=== PATIENT | female | born 1975 | race Caucasian/White ===

== ENCOUNTER 2017-07-25 17:49 | Emergency (ER) | payer SELFPAY ==
[2017-07-25 17:58] VITALS: BP 121/67; BMI 33.1
[2017-07-25] MEDS ORDERED: LEVSIN/MAALOX/LIDOC VISC PO ONE (20:57)
[2017-07-25] MEDS ORDERED: TORADOL 60 MG VIAL IM ONE (20:57)
[2017-07-25] MEDS ORDERED: TORADOL 60 MG VIAL ONE (21:00)
[2017-07-25] MEDS ORDERED: LEVSIN/MAALOX/LIDOC VISC ONE (21:00)
--- NOTE | 2017-07-25 21:02 | DR.GENAD ---
HPI - PCP Primary Care Physician: EDY DRISCOLL - Complaint/Symptoms Chief Complaint Doctors Comments: Patient is comlaining of epigastric pain for the past three days getting worst tonight. States she has been having pain her abdomen since Jun 2017. States the pain is 10 of 10 and is worst when she stands or tries to walk. States the pain is better when she bend over in the positon. States they thought she had pancreatitis when she had her baby. She denies alcohol or tobacco usage. States she does not have any periods since her ablation. States the pain is mainly in the epigastric area in the middle and LUQ and does not radiate. States she was taking Omeprazole after she had her stomach surgery but she stopped recently. Chief Complaint:: ADB PAIN, GALLBLADDER? Self Treatment fo Chief Complaint: STARTED FIRST WEEK OF JUNE, BUT HAS GOTTEN WORSE IN LAST 3 DAYS - Nurses notes reviewed Nurses Notes Review: Yes - Source History Provided: Patient - Mode of Arrival Mode of Arrival: Ambulatory - Timing Onset of Chief Complaint: 07/22/17 Came on: Gradually - Duration Duration: Constant How lon Duration: Days - Location Location: epigastric and LUQ - Severity Severity: Severe - Modifying Factors Worsens:: standing or walking Improves:: position PMH - PMH Past Medical History: Yes Past Medical History: Diabetes, Headaches Past Surgical History: Yes Surgical History: Ortho Surgery, Tonsillectomy Past Surgical History Comment: BREAST REDUCTION, GSTRIC SLEEVE IN OCTOBER 2016 - Family History History of Family Medical Conditions: Yes Family Medical History: Diabetes Mellitus, Coronary Artery Disease, Heart Failure, Hypertension - Social History Does patient currently use any type of tobacco product: No Have you used tobacco products in the last 12 months: No Type of Tobacco Use: None Does any household member use tobacco: Yes Alcohol Use: None Do you use any recreational Drugs:: No Lives With: Spouse Lives Where: Home - infectious screening In the last 2 months have you had wt loss of >10#?: NO Have you had fever, night sweats or hemotysis?: No Have you traveled outside the country in the last 6 months?: No Isolation: Standard ROS - Review of Systems Constitutional: No Symptoms Reported, Loss of Appetite. negative: See HPI, Chills, Diaphoresis, Fever, Malaise, Weakness, Irritable, Fatigue, Other Eyes: No Symptoms Reported. negative: See HPI, Eye Pain, Blurred Vision, Tearing, Discharge, Photophobia, Diplopia, Other ENTM: No Symptoms Reported Respiratoy: No Symptoms Reported. negative: See HPI, Productive Cough, Non- Productive Cough, Moist Cough, Dry Cough, Hacking Cough, Barking Cough, Brassy Cough, Orthopnea, Short of Breath, Stridor, Wheezing, Hemoptysis, Other Cardiovascular: No Symptoms Reported. negative: See HPI, Chest Pain, Edema, Palpitations, Syncope, Cyanosis, Skin Mottling, Other Gastrointestinal/Abdominal: No Symptoms Reported, Abdominal Pain, Nausea. negative: See HPI, Constipation, Diarrhea, Vomiting, Food Intolerance, Other Genitourinary: No Symptoms Reported. negative: See HPI, Discharge, Dysuria, Frequency, Hematuria, Pain, Bleeding, Other Neurological: No Symptoms Reported Musculoskeletal: No Symptoms Reported Integumentary: No Symptoms Reported. negative: See HPI, Change in Color, Change in Hair/Nails, Dryness, Lesions, Lumps, Rash, Itching, Wound, Bruises, Juandice, Other Hematologic/Lymphatic: No Symptoms Reported Endocrine: No Symptoms Reported Psychiatric: No Symptoms Reported. negative: See HPI, Anxiety, Depression, Hallucinations, Excessive crying, Suicidal, Other PE - Vital Signs Vitals: Temperature 98.9 F Pulse Rate 72 Respiratory Rate 20 Blood Pressure 121/67 O2 Sat by Pulse Oximetry 100 - General Limitations: No Limitations General Appearance: Alert, In Distress (moderate) - Head Head Exam: Normal Inspection, Atraumatic, Normocephalic - Eyes Eye exam: Normal Appearance, PERRL, EOMI. negative: Scleral Icterus, Conjunctival Injection, Nystagmus, Miosis, Mydrasis, Periorbital Swelling, Periorbital Tenderness, Other - ENT ENT Exam: Normal Exam, Normal Oropharynx, Normal External Ear Exam, Mucous Membranes Moist, TM's Normal Bilaterally External Ear Exam: Normal External Inspection TM/Canal Exam: Bilateral Normal Nose Exam: Normal Nose Exam Mouth Exam: Normal Inspection Throat Exam: Normal Inspection - Neck Neck Exam: Normal Inspection, Full ROM, Trachea Midline. negative: Tenderness, Meningismus, Lymphadenopathy, Thyromegaly, Other - Chest Chest Inspection: Normal Inspection, Symmetric Chest Wall Rise - Respiratory Respiratory Exam: Normal Lung Sounds Bilat Respiratory Exam: Bilateral Clear to Auscultation - Cardiovascular Cardiovascular Exam: Regular Rate, Normal Rhythm, Normal Heart Sounds - Abdominal Exam Abdominal Exam: Normal Inspection, Normal Bowel Sounds, Soft, Tenderness ( epigastric, LUQ tenderness with guarding), Guarding, Dimnished Bowel Sounds Abdominal Tenderness: LUQ, Epigastrium, Moderate - Extremities Extremities Exam: Normal Inspection, Full ROM, Normal Capillary Refill. negative: Tenderness, Edema, Joint Swelling, Calf Tenderness, Other - Back Back Exam: Normal Inspection, Full ROM. negative: Tenderness, (R) CVA Tenderness, (L) CVA Tenderness, Muscle Spasm, Paraspinal Tenderness, Vertebral Tenderness, Rashes, (R) Sciatic Notch Tenderness, (L) Sciatic Notch Tendern, (R ) Straight Leg Raise, (L) Straight Leg Raise, Other - Neurologic Neurological Exam: Alert, Oriented X3, CN II-XII Intact, Normal Gait, Reflexes Normal - Psychiatric Psychiatric Exam: Normal Affect, Normal Mood - Skin Skin Exam: Warm, Dry, Intact, Normal Color ROR - Labs Reviewed Laboratory Results Reviewed?: Yes (all labs and x-ray results reviewed and discussed with patient) Result Diagrams: 07/25/17 21:05 07/25/17 21:05 Laboratory: WBC 7.6 X10^3/uL (3.6-10.0) 07/25/17 21:05 RBC 4.72 X10^6/uL (3.5-5.4) 07/25/17 21:05 Hgb 13.7 g/dL (12.0-16.0) 07/25/17 21:05 Hct 39.8 % (36.0-47.0) 07/25/17 21:05 MCV 84.2 fL (80.0-100.0) 07/25/17 21:05 MCH 29.0 pg (27.0-34.0) 07/25/17 21:05 MCHC 34.4 g/dL (33.0-35.0) 07/25/17 21:05 RDW 13.9 % (11.6-16.5) 07/25/17 21:05 Plt Count 334 X10^3/uL (150.0-450.0) 07/25/17 21:05 MPV 7.8 fL (7.4-11.0) 07/25/17 21:05 Neut % 59.6 % (42.0-75.0) 07/25/17 21:05 Lymph % 32.1 % (21.0-51.0) 07/25/17 21:05 [place] % 5.6 % (0.0-13.0) 07/25/17 21:05 Eos % 1.5 % (0.9-2.9) 07/25/17 21:05 Baso % 1.2 % (0.2-1.0) H 07/25/17 21:05 Neut # 4.6 x10^3/uL (2.2-4.8) 07/25/17 21:05 Lymph # 2.5 X10^3/uL (1.3-2.9) 07/25/17 21:05 [place] # 0.4 x10^3/uL (0.3-0.8) 07/25/17 21:05 Eos # 0.1 x10^3/uL (0.0-0.2) 07/25/17 21:05 Baso # 0.1 X10^3/uL (0.0-0.1) 07/25/17 21:05 Absolute Nucleated RBC 0.0 /100WBC 07/25/17 21:05 Sodium 140 mmol/L (136-145) 07/25/17 21:05 Corrected Sodium TNP 07/25/17 21:05 Potassium 3.8 mmol/L (3.5-5.1) 07/25/17 21:05 Chloride 104 mmol/L (98-107) 07/25/17 21:05 Carbon Dioxide 28.3 mmol/L (21-32) 07/25/17 21:05 BUN 13 mg/dL (7-18) 07/25/17 21:05 Creatinine 0.68 mg/dL (0.55-1.02) 07/25/17 21:05 Est GFR (MDRD) Af Amer > 60 (>60) 07/25/17 21:05 Est GFR (MDRD) Non-Af > 60 (>60) 07/25/17 21:05 Glucose 88 mg/dL (65-99) 07/25/17 21:05 Calcium 8.7 mg/dL (8.5-10.1) 07/25/17 21:05 Corrected Calcium TNP 07/25/17 21:05 Total Bilirubin 0.40 mg/dL (0.2-1.0) 07/25/17 21:05 AST 16 Units/L (15-37) 07/25/17 21:05 ALT 19 Units/L (12-78) 07/25/17 21:05 Alkaline Phosphatase 78 Units/L (46-116) 07/25/17 21:05 Total Protein 7.8 g/dL (6.4-8.2) 07/25/17 21:05 Albumin 3.8 g/dL (3.4-5.0) 07/25/17 21:05 Globulin 4.0 g/dL (2.5-4.5) 07/25/17 21:05 Albumin/Globulin Ratio 1.0 Ratio (1.1-2.1) L 07/25/17 21:05 Amylase 47 Units/L (25-115) 07/25/17 21:05 Lipase 183 Units/L (73-393) 07/25/17 21:05 Specimen Type Clean catch urine 07/25/17 21:36 Urine Color Yellow (YELLOW) 07/25/17 21:36 Urine Appearance Clear (CLEAR) 07/25/17 21:36 Urine pH 5.0 (5.0 - 8.0) 07/25/17 21:36 Ur Specific [place] 1.025 (1.000-1.030) 07/25/17 21:36 Urine Protein Negative (NEGATIVE) 07/25/17 21:36 Urine Glucose (UA) Negative (NEGATIVE) 07/25/17 21:36 Urine Ketones Negative (NEGATIVE) 07/25/17 21:36 Urine Occult Blood 1+ (NEGATIVE) 07/25/17 21:36 Urine Nitrite Negative (NEGATIVE) 07/25/17 21:36 Urine Bilirubin Negative (NEGATIVE) 07/25/17 21:36 Urine Urobilinogen Normal (NORMAL) 07/25/17 21:36 Ur Leukocyte Esterase 1+ (NEGATIVE) 07/25/17 21:36 Urine RBC Rare /HPF (NEGATIVE) 07/25/17 21:36 Urine WBC 0-2 /HPF (NEGATIVE) 07/25/17 21:36 Ur Squamous Epith Cells Few /HPF (NEGATIVE) 07/25/17 21:36 Urine Bacteria Trace /HPF (NEGATIVE) 07/25/17 21:36 Urine Mucus Moderate /HPF (NEGATIVE) 07/25/17 21:36 Ur Culture Indicated? No/not indicated 07/25/17 21:36 H. pylori IgG Antibody Negative (NEGATIVE) 07/25/17 21:05 - XRAY XRAY Interpreted by: Radiologist (CT abdomen: No acute abnormality to explain the patient's pain) - Diagnosis Discharge Problem: Abdominal pain, epigastric, Gastritis, Umbilical hernia - Discharge Plan Disposition: HOME, SELF-CARE Condition: Stable Prescriptions: Omeprazole 40 mg PO DAILY #30 cap.ec Sucralfate [Carafate Susp 1 gm/10 ml] 1 gm PO ACHS #420 ml - Follow ups/Referrals Follow ups/Referrals: EDY DRISCOLL [Primary Care Provider] - 3 days - Instructions Instructions: Abdominal Pain, Adult, [id number], Duodenitis, Umbilical Hernia , Pediatric
[2017-07-25 21:14] LABS: BASOPHILS # (AUTO) 0.1 X10^3/uL (0.0-0.1); BASOPHILS % (AUTO) 1.2 % (0.2-1.0); EOSINOPHILS # (AUTO) 0.1 x10^3/uL (0.0-0.2); EOSINOPHILS % (AUTO) 1.5 % (0.9-2.9); HEMATOCRIT 39.8 % (36.0-47.0); HEMOGLOBIN 13.7 g/dL (12.0-16.0); LYMPHOCYTES # (AUTO) 2.5 X10^3/uL (1.3-2.9); LYMPHOCYTES % (AUTO) 32.1 % (21.0-51.0); MEAN CORPUSCULAR HGB CONC 34.4 g/dL (33.0-35.0); MEAN CORPUSCULAR VOLUME 84.2 fL (80.0-100.0); MEAN PLATELET VOLUME 7.8 fL (7.4-11.0); MONOCYTES # (AUTO) 0.4 x10^3/uL (0.3-0.8); MONOCYTES % (AUTO) 5.6 % (0.0-13.0); NEUTROPHILS # (AUTO) 4.6 x10^3/uL (2.2-4.8); NEUTROPHILS % (AUTO) 59.6 % (42.0-75.0); PLATELET COUNT 334 X10^3/uL (150.0-450.0); RED BLOOD COUNT 4.72 X10^6/uL (3.5-5.4); RED CELL DISTRIBUTION WIDTH 13.9 % (11.6-16.5); WHITE BLOOD COUNT 7.6 X10^3/uL (3.6-10.0)
[2017-07-25 21:23] LABS: ALANINE AMINOTRANSFERASE 19 Units/L (12-78); ALBUMIN 3.8 g/dL (3.4-5.0); ALKALINE PHOSPHATASE 78 Units/L (46-116); AMYLASE 47 Units/L (25-115); ASPARTATE AMINO TRANSFERASE 16 Units/L (15-37); BLOOD UREA NITROGEN 13 mg/dL (7-18); CALCIUM 8.7 mg/dL (8.5-10.1); CARBON DIOXIDE 28.3 mmol/L (21-32); CHLORIDE 104 mmol/L (98-107); CREATININE 0.68 mg/dL (0.55-1.02); LIPASE 183 Units/L (73-393); SODIUM 140 mmol/L (136-145); TOTAL PROTEIN 7.8 g/dL (6.4-8.2); eGFR BLACK RACES > 60 (>60); eGFR NON BLACK RACES > 60 (>60)
--- NOTE | 2017-07-25 21:29 | CT ---
CT abdomen and pelvis without contrast Indication: Left upper quadrant pain. Chronic but worsening over the last 3 days. Technique: Helical images through the abdomen and pelvis without contrast. Coronal and sagittal refor mats provided. 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 Abdomen: The liver, gallbladder, spleen, adrenal glands, pancreas, stomach and small bowel show no ac justin abnormality. The stomach noted. Fat containing umbilical hernia noted. The appendix is normal. No acute colonic abnormalities seen. Kidneys are ureteral nephrosis. The urinary bladder and rectum are normal. Uterus and adnexa show no acute abnormality. Impression: No acute abnormality to explain the patient's pain. Reported By:
[2017-07-25 21:55] LABS: BILIRUBIN,URINE NEGATIVE (NEGATIVE); BLOOD/HEMOGLOBIN,URINE 1+ (NEGATIVE); GLUCOSE, URINE NEGATIVE (NEGATIVE); KETONES,URINE NEGATIVE (NEGATIVE); LEUKOCYTE ESTERASE ,URINE 1+ (NEGATIVE); NITRITES,URINE NEGATIVE (NEGATIVE); PROTEIN,URINE NEGATIVE (NEGATIVE); UROBILINOGEN,URINE NORMAL (NORMAL)
[2017-07-25 22:06] LABS: APPEARANCE,URINE CLEAR (CLEAR); BACTERIA,URINE TRACE /HPF (NEGATIVE); COLOR,URINE YELLOW (YELLOW); MUCUS,URINE MODERATE /HPF (NEGATIVE); RBC,URINE RARE /HPF (NEGATIVE); SQUAMOUS EPITHELIAL CELL,UR FEW /HPF (NEGATIVE)
== END 2017-07-25 22:40 | disposition home or self-care (01) ==
LOC: ER 17:49
DX: K42.9 Umbilical hernia without obstruction or gangrene (principal); K29.70 Gastritis, unspecified, without bleeding; R10.13 Epigastric pain
CPT/HCPCS: 36415; 74176; 80053; 81001; 82150; 83690; 85025; 86677; 96372; 99282; 99283; J1885